=== PATIENT | female | born 1970 | race African-American/Black ===

== ENCOUNTER → 2016-12-22 | Outpatient (CLI) | payer BC ==
--- NOTE | 2016-12-22 19:56 | US ---
History: Pelvic pain Study: Transvaginal pelvic ultrasound Comparison: None Findings: The uterus overall measures 7.34 x 3.78 x 4.38 centimeters with a 5 x 7 millimeter thick e ndometrium. There is a 3.4 x 2.6 x 3.3 centimeter uterine fibroid. The ovaries are normal in size wi thout mass. There is no free fluid. There is normal color Doppler blood flow to the ovaries. Impression: Large posterior uterine fundal fibroid Reported By:
== END ==
LOC: RAD 15:39
PROVIDERS: ATTEND Nurse Practitioner
DX: Z12.31 Encounter for screening mammogram for malignant neoplasm of breast (principal); N85.2 Hypertrophy of uterus
CPT/HCPCS: 76830; 77067

== ENCOUNTER → 2017-12-23 | Outpatient (CLI) | payer BC ==
--- NOTE | 2017-12-24 12:04 | MG ---
HISTORY: SCREENING Comparison: Previous mammogram dated 12/22/2016 FINDINGS: Bilateral CC and MLO projections of the right and left breast were obtained. Heterogeneously dense f ibroglandular tissue is seen to be present. No significant architectural distortion, mass or cluster ed microcalcifications can be observed to suggest malignancy. No skin thickening or nipple retractio n is appreciated. No pathological lymphadenopathy can be identified. IMPRESSION: NO RADIOGRAPHIC EVIDENCE OF MALIGNANCY. ACR CATEGORY: 1 - NEGATIVE EXAM. FOLLOW-UP EXAM 1 YEAR. Reported By:
== END ==
LOC: RAD 09:16
PROVIDERS: ATTEND Physician Assistant
DX: Z12.31 Encounter for screening mammogram for malignant neoplasm of breast (principal)
CPT/HCPCS: 77067